=== PATIENT | male | born 1955 | race Caucasian/White ===

== ENCOUNTER 2025-03-15 16:03 | Observation (INO) | payer MEDICARE, OTHER, SELFPAY ==
[2025-03-15] VITALS (9 sets, daily range): BP systolic 124–155; BP diastolic 57–90; BMI 26.0; BMI 25.0
[2025-03-15 12:05] LABS: Hematocrit 35.7 % (39.0-52.0); Hemoglobin 12.3 g/dL (13.0-18.0); Mean Corp Hgb Conc. 34.5 g/dL (33.0-37.0); Mean Corpuscular Volume 87.5 fL (80.0-94.0); Nucleated Red Blood Cells % 0 % (-); Platelet Count 242 10^3/uL (130-400); Red Cell Dist. Width 13.7 % (11.5-14.5)
--- NOTE | 2025-03-15 12:38 | ED.GENMED ---
History of Present Illness
General
Chief Complaint: Chest Pain
Source: patient
Exam Limitations: none
Time Seen by Provider: 03/15/25 12:38
History of Present Illness
History of Present Illness:
69-year-old male complaining of some intermittent chest pressure and also shortness of breath of exertion progressive over 3 to 4 days. No pleuritic pain no fever no cough.
Past History
Past History
ED Past Medical History: CAD, HTN, Hypercholesterolemia and NIDDM
ED Past Surgical History: Cardiac (CABG. Aneurysm repair)
Phy Exam
Physical Exam
Physical Exam:
GENERAL: Alert and oriented in no apparent distress
EYE: Orbits normal.
NECK: Supple, no significant adenopathy.
ENT: Pharynx without erythema
CARDIAC: Regular rate and rhythm without any obvious murmurs. Sternotomy scar
LUNGS: Clear breath sounds,normal
ABDOMEN: Soft, without focal tenderness or distention
NEUROLOGICAL: Alert and oriented , grossly non-focal
SKIN: Warm and dry, no rash or lesion, no discoloration, skin intact.
MUSCULOSKELETAL: No edema,no deformity.Good color
PSYCH: Normal and appropriate interaction.
Scores
Heart Score for Chest Pain Patients
STEMI patient?: No
History: Moderately Suspicious
ECG: Normal
Age: >/= 65 years
Risk Factors: 1 or 2 Risk Factors
Troponin: </= Normal Limit
Heart Score for Chest Pain Patients: 4
Heart Score Risk: 20.3% MACE over next 6 weeks
Course
Orders/Labs/Results
Orders:
Orders
03/15/25 11:24
Electrocardiogram (*1) Urgent
Reason for Study: Chest Pain
EKG- Treatment ONCE
03/15/25 11:51
BNP [NT-proBNP] Urgent
Complete Blood Count/With Diff Urgent
Comprehensive Metabolic Panel Urgent
TSH Reflex To Free T4 Urgent
Comment: ADD ON
Troponin I Urgent
03/15/25 12:49
CT Chest PE Study Urgent
Comment:
Reason For Exam: Short of breath with exertion
03/15/25 Dinner
2200 calorie (18 carb) Diabetic
At Your Request: Full Participation
03/15/25 15:45
Admit/Transfer Patient As Directed
Co-Sign Provider:
Level of Care: Observation services
Assign to:: Telemetry
Physician / Group: Jory Melvin
Diagnosis: exertional dyspnea, chest pain
Reason for Telemetry: Chest Pain syndromes
Date to Stop Telemetry: 03/17/25
Time to Stop Telemetry: 11:00
03/15/25 15:46
PRN Pain Medication Management As Directed
May give lesser potent ordered pain med per pt: Yes
preference::
Protocol:: Medication orders for pain may be administered in a
manner that supports deferring to patient preference
when the pt is:
- Requesting an ordered lesser potent pain medication.
Least to most potent pain medications are defined
as: acetaminophen < NSAID < tramadol < opioids
(morphine, oxycodone, hydromorphone).
- Requesting a lesser dose of the same medication IF
ORDERED.
- Requesting a less intrusive route of administration
if both routes are prescribed by the provider (PO <
IV).
03/15/25 15:47
Code Status As Directed
Resuscitation Status: Full Code
03/15/25 19:21
Alprazolam [Xanax] 0.5 mg PO BIDPRN PRN ANXIETY
Dextrose 50%-Water [Dextrose 50% Syringe] 12.5 grams IV [id number] PRN
Docusate W/Senna [Senokot-S] 1 tablet PO BIDPRN PRN
Enoxaparin Sodium [Lovenox] 40 mg SC QPM
Glucagon [GlucaGen] 1 mg IM PRN PRN
Insulin Aspart Corrective Low [Novolog Flexpen-Low Resistance] See Protocol SC AC
Polyethylene Glycol Powder [Miralax] 17 grams PO DAILYPRN PRN
03/15/25 19:21
CARDIOLOGY CONSULT Routine
Consulting Provider: Javi Yeboah
Was physician already notified: Yes
Activity As Directed
Activity Level: Ambulate
Bedside Glucose Monitoring As Directed
Frequency: AC&HS
Additional Instructions:: Change to q6h if pt on TPN, tube feeding or not eating
INT (Intravenous Needle Therapy) As Directed
Comment: maintain peripheral IV access
Intake/ Output As Directed
Frequency: Per unit guidelines
Medical Records Request [Obtain Records] As Directed
Dates of Information to be Released: 2024
Type of Information Requested: Last Office Visit H&P
Other
If Other, list type of info requested: any cardiac testing in 2024
Obtain Records from: [facility]
Vital Signs As Directed
Frequency: q4h
Weight As Directed
Frequency: Once
Comment: on admission
DX Deep Vein Thrombosis Video Routine
03/15/25 20:00
Carvedilol [Coreg] 6.25 mg PO BID
03/15/25 20:18
Glycohemoglobin (HgbA1c) Routine
Troponin I Q3H
Comment: at admit & Q3H for 3 total including ED draws, obtain ECG with each level
03/15/25 22:00
Amlodipine [Norvasc] 10 mg PO HS
Aspirin Low Dose EC [Aspir Low (Enteric Coated)] 81 mg PO HS
Atorvastatin [Lipitor] 80 mg PO HS
Latanoprost [Xalatan Ophthalmic Solution] See Dose Instructions BOTH EYES HS
Lisinopril [Zestril] 40 mg PO HS
Mirtazapine [Remeron] 15 mg PO HS
03/16/25 06:00
Basic Metabolic Panel IN AM
Cardiovascular Evaluation IN AM
Levothyroxine [Synthroid] 125 mcg PO DAILY @ 0600
03/17/25 11:00
DC Protocol for Telemetry ONCE
Abnormal Lab Results
03/15/25
11:51
RBC 4.08 L 10^6/uL
(4.70-6.10)
Hgb 12.3 L g/dL
(13.0-18.0)
Hct 35.7 L %
(39.0-52.0)
Lymphocytes % 18.2 L %
(20.5-51.1)
Carbon Dioxide 21 L mmol/L
(22-30)
BUN 28 H mg/dl
(9-20)
Creatinine 0.6 L mg/dL
(0.7-1.3)
Glucose 217 H mg/dl
(70-99)
03/15/25 11:51
03/15/25 11:51
Vital Signs
Initial and Last Documented VS:
Initial Vital Signs
Temp Pulse Resp BP Pulse Ox
97.6 F 71 15 140/80 99
03/15/25 11:25 03/15/25 11:25 03/15/25 11:25 03/15/25 11:25 03/15/25 11:25
Last Documented Vital Signs
Temp Pulse Resp BP Pulse Ox
98.1 F 59 18 124/65 97
03/15/25 23:00 03/15/25 23:00 03/15/25 23:00 03/15/25 23:00 03/15/25 23:00
MDM/Problems Addressed
Differential Diagnosis Includes:
Patient describing progressive shortness of breath with exertion over 3 to 4 days. Some intermittent chest tightness. Could all be consistent with new onset unstable angina. Warrants further inpatient management. Other serious etiologies have
been ruled out radiologically and clinically
*Radiology
Radiology exam reviewed: radiology read reviewed (No pulmonary emboli)
*Pulse Oximetry
SaO2: 99
Oxygen Mode of Delivery: Room air
Patient hypoxic: no
*EKG
Interpreted by ED Provider?: Yes
Interpretation: abnormal
Comparison EKG: changes noted
Heart Rate: 72
Rate: normal
Rhythm: sinus
[place]: normal axis
Interval: first degree heart block
QRS Pattern: right bundle branch block
Ischemia: non-specific ST changes
*Critical Care Note
Total Time (30-74mins, 75-104mins- exclusive of procedures): Not Applicable
Update Note
Update Note:
Patient describing progressive exertional shortness of breath short of breath with minimal exertion. Possible anginal equivalent. Warrants inpatient further workup
ED Attending Note
-
Portions of this chart may have been created with voice recognition software.� Occasional wrong word or��sound alike� substitutions may have occurred due to the inherent limitations of voice recognition software.
Discharge Plan
Departure
Patient Disposition: Admit
Date of Disposition: 03/15/25
Time of Disposition: 14:28
Presentation/result/management discussed w/ accepting MD/DO: Hospitalist
Discharge Problem:
Progressive exertional shortness of klarissa, Possible anginal equivalent, History of CABG
Interventions
Interventions:
*Risk Screen - Suicide Last Done: 03/15/25 11:25
*General Assessment Last Done: 03/15/25 11:25
*Neglect/Abuse Screening Last Done: 03/15/25 11:25
*ED- Fall Risk Assessment Last Done: 03/15/25 12:30
*ED COVID-19 Vaccine History Last Done: 03/15/25 11:25
*Nursing Disposition Last Done: 03/15/25 19:23
ED- Cardiac Assessment Last Done: 03/15/25 12:30
Discharge Date and Time
Discharge Date/Time: 03/15/25 19:24
[2025-03-15 12:39] LABS: ALT (SGPT) 37 U/L (0-50); AST (SGOT) 33 U/L (17-59); Albumin 4.5 g/dl (3.5-5.0); Alkaline Phosphatase 69 U/L (38-126); Blood Urea Nitrogen 28 mg/dl (9-20); Calcium 10.1 mg/dl (8.4-10.2); Carbon Dioxide 21 mmol/L (22-30); Chloride 106 mmol/L (98-107); Glucose 217 mg/dl (70-99); Potassium 4.0 mmol/L (3.5-5.1); Sodium 138 mmol/L (135-145); Total Protein 7.1 g/dl (6.3-8.2); eGFR > 60.00
[2025-03-15 12:48] LABS: Troponin I < 0.012 ng/ml
--- NOTE | 2025-03-15 15:08 | HPS.HSE ---
Addendum entered and electronically signed by Pao Melvin MD 03/15/25 18:05:
This is an addendum to H&P written by Luz Colby on 03/15/2025. �Patient seen and examined independently with DIRECTOR OF [employer]MI[employer] SALES.
69-year-old male past medical history of CAD status post CABG/ aortic aneurysm s/p repair in 2019, hypertension, hypercholesteremia, diabetes, hypothyroidism, anxiety/depression, presenting with exertional dyspnea, night sweats for 3 days. �Also
with intermittent chest pressure on the left side. �Also belly fullness.
Vital signs unremarkable.
Labs show cardiac BNP 493. �Troponin negative. �CT PE unremarkable. �EKG shows sinus rhythm with first-degree block, right bundle branch block, no prior for comparison.
Patient with stable angina.� Trend troponins, obtain records from [facility], cardiology consulted.
Original Note:
Family Physician
-
Family Physician: Reyna Mooney DO
Chief Complaint
-
exertional dyspnea
History of Present Illness
Patient is a 69-year-old male with past medical history of hypertension, hyperlipidemia, CAD, IDDM, hypothyroidism and depression/anxiety who presented to [facility] ED for evaluation of exertional dyspnea. Patient reports exertional dyspnea with minimal
exertion (notes getting short of breath with phone conversation) since Friday03/11/2025. He also reports waking each night in cold sweats in the middle of the night and intermittent left sided chest pressure. Patient complains of poor appetite and
his 'belly feeling full,' but not bloating or edema just states 'full.' He acknowledges a intermittent dry cough for sometime. Denies any recent travel, sick contact, fever, chills, nausea, vomiting or diarrhea.
Medical History
Past Medical History
Past Medical History: Reports Other
Additional Past Medical History:
hypertension
hyperlipidemia
CAD
IDDM
hypothyroidism
depression/anxiety
Past Surgical History: Reports Other
Additional Past Surgical History:
CABG
aneurysm repair
Social History
Tobacco: Non-smoker
Alcohol: None
Drug: None
Living: Alone
Employment: Retired
Family History
Family History: Other (Father: DM; Mother: CAD)
Allergies / Home Medications
Allergies reflects when Allergies were last updated in [facility].
Home Medications with original date entered in [facility]
Allergy/Medication List:
Allergies
Allergy/AdvReac Type Severity Reaction Status Date / Time
No Known Allergies Allergy Unverified 03/15/25 11:36
Home Medications
acetaminophen 325 mg tablet (Tylenol) 325 mg PO Q6HPRN PRN MILD PAIN 03/15/25
alprazolam 0.5 mg tablet (Xanax) 0.5 mg PO BIDPRN PRN ANXIETY 03/15/25
amlodipine 10 mg tablet (Norvasc) 10 mg PO HS 03/15/25
aspirin 81 mg tablet,delayed release 81 mg PO HS 03/15/25
atorvastatin 80 mg tablet (Lipitor) 80 mg PO HS 03/15/25
carvedilol 6.25 mg tablet (Coreg) 6.25 mg PO BID 03/15/25
cholecalciferol (vitamin D3) 10 mcg/5 mL (400 unit/5 mL) oral liquid 10 mcg PO DAILY 03/15/25
glipizide 5 mg tablet, extended release 24 hr 10 mg PO BID 03/15/25
insulin glargine 100 unit/mL (3 mL) subcutaneous pen (Lantus Solostar U-100 Insulin) 10 unit SC HS 03/15/25
latanoprostene bunod 0.024 % eye drops (Vyzulta) 1 drp BOTH EYES HS 03/15/25
levothyroxine 125 mcg tablet (Synthroid) 125 mcg PO DAILY 03/15/25
lisinopril 40 mg tablet 40 mg PO HS 03/15/25
metformin 500 mg tablet 1,000 mg PO BID 03/15/25
mirtazapine 15 mg tablet 15 mg PO HS 03/15/25
zolpidem 10 mg tablet (Ambien) 10 mg PO HS 03/15/25
Review of Systems
-
History Source: Patient
Constitutional: Reports Night Sweats; Denies Fever, Fatigue, Sleep Disturbance or Chills
EENT: Reports No Symptoms
Respiratory: Reports Cough (intermittent dry cough) and Trouble Breathing (exertional dyspnea )
Cardiac: Reports Chest Pain (left sided chest pressure ); Denies Diaphoresis, Palpitations or Syncope
Abdomen/GI: Reports Other (poor appetite ); Denies Abdominal Pain, Nausea, Vomiting, Diarrhea or Constipated
: Denies Dysuria, Frequency, Flank Pain, Difficulty Voiding or Urgency
Musculoskeletal: Reports No Symptoms
Skin: Denies Rash
Neurological: Denies Dizzy, Weakness or Numbness
Endocrine: Reports No Symptoms
Hematologic/Lymphatic: Reports No Symptoms
Psych: Reports No Symptoms
Physical Exam
Vital Signs
Vital Signs
Temp Pulse Resp BP Pulse Ox
97.6 F 68 18 131/70 97
03/15/25 11:25 03/15/25 14:33 03/15/25 14:33 03/15/25 13:03 03/15/25 14:33
Physical Exam
General: Well Developed, Well Nourished, No Apparent Distress, Comfortable and Conversant
HEENT: NormoCephalic, Moist mucous membranes and Atraumatic
Respiratory: Clear and Non Labored Respirations
Cardiac: S1/S2, Regular Rhythm and Other (sternotomy scar ); No Murmur, Rub or Gallop
Breast: Deferred by me
GI: Soft, Non Tender, Non Distended and Normal Bowel Sounds; No Organomegaly
Rectal: Deferred by Provider
Genito-urinary: Deferred by me
Musculoskeletal: No Clubbing, No Cyanosis and No Edema
Skin: Warm and IV/Catheter Site; No Rash
Neuro: Awake, AO x 3 and Nonfocal/grossly intact
Hematologic/Lymphatic: No Lymphadenopathy
Psych: Calm and Intact Judgment/Insight
Laboratory Results
-
03/15/25 11:51
03/15/25 11:51
Laboratory Results
Total Bilirubin 0.9 mg/dl (0.2-1.3) 03/15/25 11:51
AST 33 U/L (17-59) 03/15/25 11:51
ALT 37 U/L (0-50) 03/15/25 11:51
Alkaline Phosphatase 69 U/L (38-126) 03/15/25 11:51
Troponin I < 0.012 ng/ml 03/15/25 11:51
Data Reviewed
-
CT Scan: Report Reviewed by me (Chest: Examination is negative for pulmonary embolism. Mild dependent atelectasis in the posterior lungs. )
Lab Data: Labs Reviewed by me
Impression/Plan
-
IMPRESSION/PLAN:
#exertional dyspnea/chest pressure 2/2 ACS vs. angina vs. arrhythmia
trop <0.012, pBNP [address]: Examination is negative for pulmonary embolism.
Mild dependent atelectasis in the posterior lungs.
EKG: SINUS RHYTHM WITH 1ST DEGREE A-V BLOCK
RIGHT BUNDLE BRANCH BLOCK
CANNOT RULE OUT INFERIOR INFARCT , AGE UNDETERMINED
- Admit to telemetry
- Consult Cardiology
- Request records
- trend troponin
#hypertension
- continue amlodipine and carvedilol
#hyperlipidemia
- continue atorvastatin
#CAD
s/p CABG
- continue aspirin
#IDDM
- AccuCheck AC & HS
- SSI
- continue Lantus
- hold glipizide and metformin
#hypothyroidism
- continue levothyroxine
#depression/anxiety
- continue alprazolam PRN and mirtazapine
Code status: full code
DVT prophylaxis: Lovenox sq
--- NOTE | 2025-03-15 16:28 | CON.CAR ---
Addendum entered and electronically signed by Javi Yeboah MD 03/15/25 17:03:
I saw and examined the patient.
The SCHOOL ADMISSIONS REPRESENTATIVE or PA's note was reviewed and I agree with the note.
Comment: General: Well developed, well nourished in NAD.
Neck: Supple, no JVD, HJR, carotids +2 B/L, no bruits bilaterally.
Heart: Non displaced PMI, RRR, no murmurs, No S3, S4, no rubs.
Lungs: Clear to auscultation bilaterally, no wheeze, rhonchi, rubs bilaterally,
normal expiratory phase.
Abdomen: Normal bowel sounds, soft, non-tender, non-distended.
Extremities: No clubbing, cyanosis or edema bilaterally.
Neuro: Grossly nonfocal, awake, alert and oriented x3.
Souleymane has a past medical history of coronary disease status post four-vessel bypass with ascending aortic root replacement in November 2018 at [place], parietal stroke in November 2017, hypertension, hyperlipidemia, diabetes, sleep apnea. He presents ER
with complaints of 4 nights of night sweats. He also felt something was wrong and has increasing dyspnea on exertion. He was able to mow the lawn yesterday but felt more tired. He gets an occasional left intermittent chest discomfort but not
related to activity.
Workup so far is negative. Will continue to track troponins. Will check echocardiogram during admission and consider outpatient stress testing.
Original Note:
Consultation
Consultation Request
Date/Time Consultation Requested: 03/15/2025
Date/Time Consultation Performed: 03/15/2025
Requesting Provider: NEGRO Mohamud
Performing Provider: Dr. Yeboah
Reason for Consultation: Shortness of breath left-sided chest discomfort
Medical History
-
History of Present Illness:
Patient is a 69-year-old male with a past medical history significant for coronary artery disease status post CABG as well as ascending aortic root replacement with graft in November 2018, parietal stroke in November 2018, hypertension, hyperlipidemia, type 2
diabetes, obstructive sleep apnea who presents to emergency department 03/15/2025 with complaints of 4 nights of night sweats. Patient reports in general he feels 'something is wrong'. He notes feeling winded or short of breath with conversation,
intermittent dry cough, and occasionally will have an intermittent left-sided chest discomfort but not necessarily related to activity. He reports yesterday he was able to mow the lawn without cardiac limitations including chest pain or shortness
of breath. He denies having weight gain or weight loss recently. He denies edema, orthopnea or PND, fevers or chills or recent illness.
EKG in emergency department demonstrated sinus rhythm with first-degree AV block, right bundle branch block. Initial troponin was undetectable. proBNP was unremarkable at 493. White count was normal. CT of chest with contrast was negative for
pulmonary embolism with mild dependent atelectasis at posterior bases. Blood pressures reasonably controlled. At time of this evaluation patient currently chest pain-free and denies shortness of breath.
PMH:
Coronary artery disease
Status post CABG x 3 (ANDRE to LAD, SVG to OM 2 posterior lateral) 12/02/2018
Ascending aortic aneurysm
status post ascending aorta replacement with graft 12/02/2018
Parietal stroke 12/03/2018
Right bundle branch block
Hypertension
Hyperlipidemia
Type 2 diabetes
Hypothyroid
Obesity
Obstructive sleep apnea
Liver/pancreatic cysts
Past Medical History
Past Medical History: Other (See HPI)
Past Surgical History: Cardiac ( CABG x 3 (ANDRE to LAD, SVG to OM 2 posterior lateral) and aortic replacement with graft 12/02/2018, )
Social History
Tobacco: Non-Smoker
Alcohol: None
Drug: None
Living: Alone
Employment: Retired
Family History
Family History: CAD (Mother CABG/CAD in 70's) and Diabetes (father)
Allergies / Home Medications
Allergy/AdvReac Type Severity Reaction Status Date / Time
No Known Allergies Allergy Unverified 03/15/25 11:36
�Medication �Instructions �Recorded �Confirmed �Type
acetaminophen 325 mg tablet 325 mg PO Q6HPRN PRN MILD PAIN 03/15/25 03/15/25 History
(Tylenol)
alprazolam 0.5 mg tablet (Xanax) 0.5 mg PO BIDPRN PRN ANXIETY 03/15/25 03/15/25 History
amlodipine 10 mg tablet (Norvasc) 10 mg PO HS 03/15/25 03/15/25 History
aspirin 81 mg tablet,delayed 81 mg PO HS 03/15/25 03/15/25 History
release
atorvastatin 80 mg tablet (Lipitor) 80 mg PO HS 03/15/25 03/15/25 History
carvedilol 6.25 mg tablet (Coreg) 6.25 mg PO BID 03/15/25 03/15/25 History
cholecalciferol (vitamin D3) 10 10 mcg PO DAILY 03/15/25 03/15/25 History
mcg/5 mL (400 unit/5 mL) oral
liquid
glipizide 5 mg tablet, extended 10 mg PO BID 03/15/25 03/15/25 History
release 24 hr
insulin glargine 100 unit/mL (3 10 unit SC HS 03/15/25 03/15/25 History
mL) subcutaneous pen (Lantus
Solostar U-100 Insulin)
latanoprostene bunod 0.024 % eye 1 drp BOTH EYES HS 03/15/25 03/15/25 History
drops (Vyzulta)
levothyroxine 125 mcg tablet 125 mcg PO DAILY 03/15/25 03/15/25 History
(Synthroid)
lisinopril 40 mg tablet 40 mg PO HS 03/15/25 03/15/25 History
metformin 500 mg tablet 1,000 mg PO BID 03/15/25 03/15/25 History
mirtazapine 15 mg tablet 15 mg PO HS 03/15/25 03/15/25 History
zolpidem 10 mg tablet (Ambien) 10 mg PO HS 03/15/25 03/15/25 History
Review of Systems
-
History Source: Patient
All other systems: Negative unless noted
Physical Exam
Vital Signs
Temp Pulse Resp BP Pulse Ox
97.6 F 65 16 128/57 99
03/15/25 11:25 03/15/25 16:00 03/15/25 16:04 03/15/25 16:00 03/15/25 16:00
GEN: No distress, awake, Ox3
HEENT: supple, anicteric, mmm
LUNGS: CTA, no wheezes/rales
Chest: Well-healed sternotomy scar without rocking or clicking
CV: Reg, S1/S2, no murmur, rub or gallop
ABD: soft, BS+, NT/ND
EXT: No edema clubbing or cyanosis
NEURO: Gross non-focal
SKIN: No rash, warm, dry, pink
Lab Results
03/15/25 11:51
03/15/25 11:51
Troponin I < 0.012 ng/ml 03/15/25 11:51
Bky-H-Aujzhljutsc Pept 493 pg/ml 03/15/25 11:51
Impression / Plan
-
PCP: Reyna Padgett
Direct Sales Representative: Dr. Alvaraod Prince, [place] medical/surgery registered nurse
Impression:
Presents 03/15/2025 with shortness of breath, intermittent chest discomfort and night sweats x 4
Coronary artery disease
Status post CABG x 3 (ANDRE to LAD, SVG to OM 2 posterior lateral) 12/02/2018
Ascending aortic aneurysm
status post ascending aorta replacement with graft 12/02/2018
Parietal stroke 12/03/2018
Right bundle branch block
Hypertension
Hyperlipidemia
Type 2 diabetes
Hypothyroid
Obesity
Obstructive sleep apnea
Liver/pancreatic cysts
Carotid ultrasound July 2023: Bilateral ICA 16 to 49%
Echo July 2023 ([facility]): EF 60 to 65%, mild aortic insufficiency, mild tricuspid regurgitation
Plan:
- Presents 03/15/2025 with shortness of breath, intermittent chest discomfort and night sweats x 4
- EKG shows sinus rhythm with first-degree AV block, right bundle branch block which is unchanged from prior EKG when compared to outpatient cardiology EKG from 11/17/2024
- proBNP within normal range and no evidence of pleural effusions noted on CT of chest. Mild dependent atelectasis in posterior lung bases otherwise rest of lungs are clear.
- Initial troponin undetectable. Repeat second troponin now, ordered by me. If second troponin negative would consider outpatient ischemic evaluation with his routine sheet rock taper helper
- Check echo
- Given history of diabetes and complaints of night sweats would monitor sugar overnight to rule out roxanne phenomenon or Somogyi effect
- Monitor on telemetry overnight to rule out arrhythmia
- TSH 0.95
- Outpatient cardiology records requested and reviewed with above history and testing reflecting these records.
Data Reviewed
-
EKG: Report Reviewed by me, Discussed with Physician and Discussed with Patient
CT Scan: Report Reviewed by me, Discussed with Physician and Discussed with Patient
Labs: Labs Reviewed by me, Discussed with Physician and Discussed with Patient
Old Records: Reviewed (Received records from outpatient sheet rock taper helper Dr. Prince)
--- NOTE | 2025-03-15 17:37 | CM ---
CM reviewed chart and met with pt bedside in ED. Lives alone, 1 story home, [address].
Indepedent in ADLs, personal care and ambulation at baseline, does not use assistive device but has walker and cane.
TIDWELL reviewed and signed, copy left with pt.
Confirms prescription coverage.
No hx VN or SNF.
PCP: Reyna Mooney
Pharmacy: [facility]
Anticipate discharge home, watch for needs.
[2025-03-15 17:40] LABS: Troponin I < 0.012 ng/ml
--- NOTE | 2025-03-15 19:26 | PTCARENOTE ---
Pt received from ED to [id number]. Pt oriented to room and call horan.
[2025-03-15] MEDS: NOVOLOG FLEXPEN-LOW RESISTANCE SC (20:24)
[2025-03-15] MEDS: COREG 6.25 MG PO (20:29)
[2025-03-15] MEDS: ASPIR LOW (ENTERIC COATED) 81 MG PO (20:29)
[2025-03-15] MEDS: LIPITOR 80 MG PO (20:29)
[2025-03-15] MEDS: LOVENOX 40 MG SC (20:36)
[2025-03-15 20:52] LABS: Troponin I < 0.012 ng/ml
[2025-03-15 21:57] LABS: Glucose - Point of Care 86 mg/dl (70-99)
[2025-03-15] MEDS: ZESTRIL 40 MG PO (21:57)
[2025-03-15] MEDS: XALATAN OPHTHALMIC SOLUTION 1 DROP BOTH EYES (21:58)
[2025-03-15] MEDS: REMERON 15 MG PO (21:58)
[2025-03-15] MEDS: NORVASC 10 MG PO (21:58)
[2025-03-15] MEDS: AMBIEN 10 MG PO (22:24)
[2025-03-16] MEDS: XANAX 0.5 MG PO (04:13)
[2025-03-16 04:20] LABS: Glucose - Point of Care 109 mg/dl (70-99)
[2025-03-16] MEDS: SYNTHROID 125 MCG PO (04:56)
[2025-03-16 07:03] LABS: Blood Urea Nitrogen 16 mg/dl (9-20); Calcium 9.5 mg/dl (8.4-10.2); Carbon Dioxide 26 mmol/L (22-30); Chloride 107 mmol/L (98-107); Estimated Creatinine Clearance > 125 ml/min; Glucose 135 mg/dl (70-99); HDL Cholesterol 35 mg/dl; LDL Cholesterol, Calculated 32 mg/dl; Potassium 4.0 mmol/L (3.5-5.1); Sodium 139 mmol/L (135-145); Very Low Density Lipoprotein 19 mg/dl (0-30); eGFR > 60.00
[2025-03-16 07:26] LABS: Glucose - Point of Care 129 mg/dl (70-99)
[2025-03-16 07:28] LABS: Glucose - Point of Care 66 mg/dl (70-99)
[2025-03-16 07:30] VITALS: BP 151/74
[2025-03-16] MEDS: NOVOLOG FLEXPEN-LOW RESISTANCE SC (08:45)
[2025-03-16] MEDS: COREG 6.25 MG PO (08:46)
[2025-03-16 09:03] LABS: Hepatitis C Antibody Negative (Negative)
--- NOTE | 2025-03-16 09:16 | W.PN.CARDCBS ---
Addendum entered and electronically signed by Radha Mckeon PA-C 03/16/25 13:08:
Echo 03/16/2025: EF 50 to 55%, mild to moderate aortic regurgitation, mild mitral regurgitation, mild to moderate TR. Compared to echo from [facility] from 2023 the EF then was 60 to 65% with mild MR and mild TR. Patient had serially undetectable troponin
levels. Patient will follow-up with his primary ear nose throat physician to see what additional cardiac workup is needed for his SOB, intermittent CP and night sweats.
Original Note:
Today's Communication / Plan
-
Check echo
If echo stable, then outpt follow up and stress test
Impression / Plan
-
PCP: Reyna Padgett
Pump House Technician: Dr. Alvarado Prince, [facility] chief medical director
Impression:
Presents 03/15/2025 with shortness of breath, intermittent chest discomfort and night sweats x 4
Coronary artery disease
Status post CABG x 3 (ANDRE to LAD, SVG to OM 2 posterior lateral) 12/02/2018
Ascending aortic aneurysm
status post ascending aorta replacement with graft 12/02/2018
Parietal stroke 12/03/2018
Right bundle branch block
Hypertension
Hyperlipidemia
Type 2 diabetes
Hypothyroid
Obesity
Obstructive sleep apnea
Liver/pancreatic cysts
Carotid ultrasound July 2023: Bilateral ICA 16 to 49%
Echo July 2023 ([facility]): EF 60 to 65%, mild aortic insufficiency, mild tricuspid regurgitation
Plan:
Troponins have been negative and EKG stable with stable RBBB
Work up has been negative. He is asymptomatic
Check echo which is pending.
If echo is stable then he can follow up with his outside ear nose throat physician for outpt stress testing.
DM management as per primary service. Monitor for hypoglycemia.
Will arrange outpt follow up.
Discussed with nursing.
HPI:Souleymane has a past medical history of coronary disease status post four-vessel bypass with ascending aortic root replacement in November 2018 at [facility], parietal stroke in November 2017, hypertension, hyperlipidemia, diabetes, sleep apnea. He presents
ER with complaints of 4 nights of night sweats. He also felt something was wrong and has increasing dyspnea on exertion. He was able to mow the lawn yesterday but felt more tired. He gets an occasional left intermittent chest discomfort but not
related to activity.Night sweats X 4.
Progress Note - Pump House Technician
Subjective
Date of Service: March 16, 2025
Pt seen and examined. No complaints. No chest pain or shortness of breath.
Objective
Labs:
03/15/25 11:51
03/16/25 06:15
Labs
Hgb 12.3 g/dL (13.0-18.0) L 03/15/25 11:51
Hct 35.7 % (39.0-52.0) L 03/15/25 11:51
Plt Count 242 10^3/uL (130-400) 03/15/25 11:51
Sodium 139 mmol/L (135-145) 03/16/25 06:15
Potassium 4.0 mmol/L (3.5-5.1) 03/16/25 06:15
BUN 16 mg/dl (9-20) 03/16/25 06:15
Creatinine 0.5 mg/dL (0.7-1.3) L 03/16/25 06:15
Glucose 135 mg/dl (70-99) H 03/16/25 06:15
Troponins
03/15/25 03/15/25 03/15/25
11:51 17:01 20:18
Troponin I < 0.012 < 0.012 < 0.012
03/15/25
22:21
Troponin I Cancelled
Vital Signs and I&O:
Vital Signs
Temp Pulse Resp BP Pulse Ox
99.3 F 70 18 151/74 99
03/16/25 07:30 03/16/25 07:30 03/16/25 07:30 03/16/25 07:30 03/16/25 07:30
Vital Signs
Temp Pulse Resp BP Pulse Ox
99.3 F 70 18 151/74 99
03/16/25 07:30 03/16/25 07:30 03/16/25 07:30 03/16/25 07:30 03/16/25 07:30
Intake & Output
03/14/25 03/15/25 03/16/25 03/17/25
06:59 06:59 06:59 06:59
Intake Total 480 / 480
Balance 480 / 480
Physical Exam
Physical Exam
General: No acute distress, AAOX3
Neck: Negative JVD
Heart: Regular, Negative S3 positive S1/S2, Negative S4, No murmur
Lungs: CTA b/l, negative wheezes/rales/rhonchi
Abd: Positive BS, NT/ND, neg rebound/rigidity/guarding
Ext: Negative cyanosis/clubbing/edema
Neuro: nonfocal
[2025-03-16 10:12] LABS: Glycohemoglobin (HgbA1c) 7.8 % (4.0-5.6)
--- NOTE | 2025-03-16 10:32 | CARDSERVLU ---
Echocardiogram with [facility] completed after protocol screening completed. Allergies verified.
Patent IV site: Left arm median antecubital 20 G PC site clear
IV site flushed with 0.9% NaCl pre and post administration.
Diluted bolus method utilized to enhance visualization of ventricular crow.
Total volume given: __3__ mL
Patient tolerated all procedures well without complications.
[2025-03-16 11:03] VITALS: BP 134/78
--- NOTE | 2025-03-16 11:13 | CM ---
Addendum entered by Da Infante 03/16/25 13:30:
Patient will d/c today, no needs at this time
Original Note:
CM consulted for advanced directive. CM met w/ patient bedside to see if he was interested in information. Patient was agreeable to a copy and will review w/ his licensed psychologist manager
[2025-03-16 11:38] LABS: Glucose - Point of Care 210 mg/dl (70-99)
[2025-03-16] MEDS: NOVOLOG FLEXPEN-LOW RESISTANCE 2 UNITS SC (12:15)
--- NOTE | 2025-03-16 13:09 | W.PN.HOSP.TC ---
Today's Communication/Plan
-
Monitor vitals
See plan
Discussed with cardiology, normal EF on echo. Patient to follow-up with outpatient cardiology
Troponin negative
Discharge today
Time of discharge 37 minutes
Assessment / Plan
Assessment / Plan
General: Well Developed, Well Nourished, No Apparent Distress, Comfortable and Conversant
HEENT: NormoCephalic, Moist mucous membranes and Atraumatic
Respiratory: Clear and Non Labored Respirations
Cardiac: S1/S2, Regular Rhythm and Other (sternotomy scar )
GI: Soft, Non Tender, Non Distended and Normal Bowel Sounds
Musculoskeletal: No Edema
Skin: No Rash
Neuro: Awake, AO x 3 and Nonfocal/grossly intact
Psych: Calm and Intact Judgment/Insight
exertional dyspnea/chest pressure likely secondary to atelectasis
trop <0.012, pBNP [address]: Examination is negative for pulmonary embolism.
Mild dependent atelectasis in the posterior lungs.
EKG: SINUS RHYTHM WITH 1ST DEGREE A-V BLOCK
RIGHT BUNDLE BRANCH BLOCK
CANNOT RULE OUT INFERIOR INFARCT , AGE UNDETERMINED
Cardiology following, echo with preserved EF, mild to moderate aortic regurgitation. Per cardiology patient can be discharged with outpatient follow-up with his lead net software developer from having
Negative troponin
Symptoms now improving
Advised patient to follow-up closely with PCP outpatient. Chest x-ray without any pneumonia. No leukocytosis on admission. No fever.
#hypertension
- continue amlodipine and carvedilol
#hyperlipidemia
- continue atorvastatin
#CAD
s/p CABG
- continue aspirin
#IDDM
A1c 7.8
- AccuCheck AC & HS
- SSI
- continue Lantus
- restart glipizide and metformin
#hypothyroidism
- continue levothyroxine
#depression/anxiety
- continue alprazolam PRN and mirtazapine
Code status: full code
DVT prophylaxis: Lovenox sq
Anticipated Discharge: Today
Subjective/Interval History
-
Date of Service: March 16, 2025
denies pain
Objective Data
-
Labs:
Laboratory Results
03/16/25
06:15
Sodium 139
Potassium 4.0
Chloride 107
Carbon Dioxide 26
BUN 16
Creatinine 0.5 L
Glucose 135 H
Calcium 9.5
Vital Signs:
Vital Signs
Temp Pulse Resp BP Pulse Ox
98.6 F 59 18 134/78 99
03/16/25 11:03 03/16/25 11:03 03/16/25 11:03 03/16/25 11:03 03/16/25 11:03
I&O
03/15/25 03/16/25 03/17/25
06:59 06:59 06:59
Intake Total 480 / 480
Balance 480 / 480
--- NOTE | 2025-03-16 13:21 | W.DCSUMMARY ---
Discharge Summary
Discharge Data
Date of Admission: 03/15/25
Date of Discharge: 03/16/25
-
Pending Results: No
Hospital Course
69-year-old male with past medical history of hypertension, hyperlipidemia, CAD status post CABG, insulin-dependent diabetes mellitus, hypothyroidism, depression, anxiety, aortic root replacement came to the hospital with exertional dyspnea and
chest pressure. Patient was seen by cardiology who recommended echocardiogram along with troponin. Troponins were negative throughout hospitalization. Echocardiogram showed preserved EF with mild to moderate aortic regurgitation. Cardiology
recommended patient to follow-up with his outpatient medical specialist for further management. Patient also had CT scan of the chest which was negative for pulmonary embolism however did show dependent atelectasis which appeared to be the reason for his
possible exertional dyspnea. Once his symptoms continue to improve, he was then discharged home with instructions to follow-up with all his physicians outpatient.
Discharge Plan
-
Patient Disposition: Home (Routine Discharge)
Discharge Diagnosis/Procedures: Dyspnea suspect secondary to atelectasis
Chest tightness
Diet: As tolerated
Activity: As tolerated
Driving Restrictions: As prior to admission
Bathing Restrictions: None
Referrals:
Alvarado Prince MD [Non-Admitting Privileges] - in one to two weeks
Referral Note: Follow up with Dr. Prince at [facility] cardiology to see if you need a stress test to further evaluate your symptoms.
Reyna Mooney DO [Family Provider, Family Practice] - in less than 1 week
Prescriptions:
Continued
metformin 500 mg Tablet
1,000 mg PO BID
atorvastatin [Lipitor] 80 mg Tablet
80 mg PO HS
acetaminophen [Tylenol] 325 mg Tablet
325 mg PO Q6HPRN PRN (Reason: MILD PAIN)
carvedilol [Coreg] 6.25 mg Tablet
6.25 mg PO BID
glipizide 5 mg Tablet Extended Release 24hr
10 mg PO BID
aspirin 81 mg Tablet,Delayed Release (Dr/Ec)
81 mg PO HS
alprazolam [Xanax] 0.5 mg Tablet
0.5 mg PO BIDPRN PRN (Reason: ANXIETY)
amlodipine [Norvasc] 10 mg Tablet
10 mg PO HS
levothyroxine [Synthroid] 125 mcg Tablet
125 mcg PO DAILY
mirtazapine 15 mg Tablet
15 mg PO HS
zolpidem [Ambien] 10 mg Tablet
10 mg PO HS
lisinopril 40 mg Tablet
40 mg PO HS
insulin glargine [Lantus Solostar U-100 Insulin] 100 unit/mL (3 mL) Insulin Pen
10 unit SC HS
cholecalciferol (vitamin D3) 10 mcg/5 mL (400 unit/5 mL) Liquid
10 mcg PO DAILY
Vyzulta 0.024 % Drops
1 drp BOTH EYES HS
Discharge Orders:
Discharge Patient (As Directed); Ordered 03/16/25
Ordered By: Kris Mathis
Discharge Date and Time
Discharge Date/Time: 03/16/25 14:38
Print Language: PARAGUAYAN
== END 2025-03-16 14:38 | disposition home or self-care (01) ==
LOC: 4 WEST ACU 16:03
PROVIDERS: Emergency Medicine; Nurse Practitioner Family; Physician Assistant Medical; ADMITTING PHYSICIAN Hospitalist; ATTENDING PHYSICIAN Internal Medicine; CONSULT PHYSICIAN Internal Medicine Cardiovascular Disease; EMERGENCY PHYSICIAN Emergency Medicine; FAMILY PHYSICIAN Family Medicine
DX: R06.09 Other forms of dyspnea (principal); R07.89 Other chest pain; J98.11 Atelectasis; I08.3 Combined rheumatic disorders of mitral, aortic and tricuspid valves; I25.10 Atherosclerotic heart disease of native coronary artery without angina pectoris; I10 Essential (primary) hypertension; E78.00 Pure hypercholesterolemia, unspecified; E11.9 Type 2 diabetes mellitus without complications; E03.9 Hypothyroidism, unspecified; F32.A Depression, unspecified; F41.9 Anxiety disorder, unspecified; I44.0 Atrioventricular block, first degree; Z86.73 Personal history of transient ischemic attack (TIA), and cerebral infarction without residual deficits; G47.33 Obstructive sleep apnea (adult) (pediatric); E66.9 Obesity, unspecified; Z68.25 Body mass index [BMI] 25.0-25.9, adult; Z79.899 Other long term (current) drug therapy
CPT/HCPCS: 71275; 80048; 80053; 80061; 82962; 83036; 83880; 84443; 84484; 85025; 86803; 93005; 93306; 99284; G0378; Q9950; Q9967